=== PATIENT | female | born 1930 | race Caucasian/White ===

== ENCOUNTER → 2017-01-25 | Day surgery (SDC) | payer MEDICARE, BC ==
[~2017-01-25] MED LIST: BUPIVACAINE HCL 0.5% MPF 10 ML SOL ONE; TRIAMCINOLONE ACETONIDE 40 MG/ML SUS ONE
[2017-01-25 13:56] VITALS: O2SAT 96
[2017-01-25 14:39] VITALS: PULSE 67; RESP 14; TEMP 97.7
[2017-01-25 14:58] VITALS: BP 168/96
== END | disposition home or self-care (01) | DRG 556 ==
LOC: SURG 13:43
PROVIDERS: ATTEND Nurse Anesthetist, Certified Registered
DX: M79.1 Myalgia (principal)
CPT/HCPCS: J3300

== ENCOUNTER 2017-10-26 14:08 | Day surgery (SDC) | payer MEDICARE, BC ==
[2017-10-26] MEDS ORDERED: DIAZEPAM 5 MG TAB ONE (14:16)
[2017-10-26] MEDS ORDERED: TRIAMCINOLONE ACETONIDE 40 MG/ML SUS ONE (14:59)
[2017-10-26] MEDS ORDERED: BUPIVACAINE HCL 0.25% MPF 10 ML SOL INFIL ONE (15:00)
[2017-10-26 15:27] VITALS: RESP 20
[2017-10-26 15:32] VITALS: BP 166/98; PULSE 63; TEMP 97.7; O2SAT 97
== END 2017-10-26 15:45 | disposition home or self-care (01) | DRG 556 ==
LOC: SURG 14:08
PROVIDERS: ATTEND Nurse Anesthetist, Certified Registered
DX: M79.1 Myalgia (principal)
CPT/HCPCS: A6402; A9270-GY; J3300

== ENCOUNTER 2017-10-27 01:48 | Inpatient (IN) | payer MEDICARE, BC ==
[2017-10-27] MEDS: SODIUM CHLORIDE 0.9% FLUSH 10 ML SOL IV PRN ×8 (01:58→20:38)
[2017-10-27] MEDS ORDERED: HYDROMORPHONE HCL 2 MG/ML SOL IV ONE ×2 (02:00→03:01)
[2017-10-27] MEDS ORDERED: HYDROMORPHONE HCL 2 MG/ML SOL ONE ×2 (02:01→02:59)
[2017-10-27] MEDS ORDERED: SODIUM CHLORIDE 0.9% 1000ML 1,000 ML IV ONE (02:07)
[2017-10-27] MEDS ORDERED: KETOROLAC TROMETHAMINE 30 MG/ML SOL ONE (02:17)
[2017-10-27] MEDS ORDERED: KETOROLAC TROMETHAMINE 30 MG/ML SOL IV ONE (02:21)
[2017-10-27] MEDS ORDERED: MORPHINE SULFATE 10 MG/ML SOL IV PRN (02:28)
[2017-10-27 02:43] LABS: BASOPHILS % (AUTO) 1 % (0-3); EOSINOPHILS % (AUTO) 0 % (0-9); HEMATOCRIT 43 % (35-47); HEMOGLOBIN 14.5 gm/dl (12.0-15.5); LYMPHOCYTES % (AUTO) 14.6 % (10-50); MEAN CORPUSCULAR HEMOGLOBIN 28.2 pg (27.0-32.0); MEAN CORPUSCULAR HGB CONC 33.7 gm/dl (32.0-36.0); MEAN CORPUSCULAR VOLUME 84 fL (81-99); MONOCYTES % (AUTO) 2.6 % (0-12); NEUTROPHILS % (AUTO) 82.2 % (37-80)
[2017-10-27 02:54] LABS: ALBUMIN 3.5 gm/dl (3.4-5.0); BILIRUBIN,TOTAL 0.4 mg/dl (0.2-1.0); CALCIUM 9.5 mg/dl (8.5-10.1); CARBON DIOXIDE 26.3 mEq/L (21-32); CREATININE 0.61 mg/dl (0.60-1.00); POTASSIUM 3.8 mMol/L (3.5-5.1); TOTAL PROTEIN 7.7 gm/dl (6.4-8.2)
[2017-10-27] MEDS ORDERED: ONDANSETRON HCL 4 MG/2 ML SOL ONE (03:05)
[2017-10-27] MEDS: ONDANSETRON HCL 4 MG/2 ML SOL IV PRN ×3 (03:11→15:22)
[2017-10-27] MEDS ORDERED: MORPHINE SULFATE 10 MG/ML SOL ONE (07:55)
[2017-10-27] MEDS ORDERED: CHLORTHALIDONE 25 MG TAB PO SCH ×2 (09:15→21:00)
[2017-10-27] MEDS: CETIRIZINE HYDROCHLORIDE 10 MG TAB PO SCH ×2 (09:24→10:05)
[2017-10-27] MEDS: ACETAMINOPHEN 325 MG PO SCH ×2 (09:24→10:05)
[2017-10-27] MEDS: AMOXICILLIN 125/5 ML BOTTLE PO SCH ×3 (09:25→20:38)
[2017-10-27] MEDS: POTASSIUM CHLORIDE 10 MEQ TER PO SCH ×2 (09:25→10:05)
[2017-10-27] MEDS: DIPHENHYDRAMINE 50 MG/ML SOL IV PRN ×2 (09:54→17:31)
[2017-10-27] MEDS ORDERED: TRIAMCINOLONE ACETONIDE 40 MG/ML SUS ONE (11:31)
[2017-10-27] MEDS ORDERED: BUPIVACAINE HCL 0.25% MPF 30 ML SOL INFIL ONE (11:32)
[2017-10-27] MEDS ORDERED: APAP/HYDROCODONE 325/5 TAB PO PRN (14:12)
[2017-10-27] MEDS: KETOROLAC TROMETHAMINE 30 MG/ML SOL IV PRN (15:47)
[2017-10-27] MEDS ORDERED: HYDROMORPHONE 1 MG/ML SYRINGE IV ONE (17:40)
[2017-10-27] MEDS: TIZANIDINE 2 MG PO PRN (20:38)
[2017-10-27] MEDS: NIFEDIPINE 30 MG ER TABLET PO SCH (20:39)
[2017-10-28] MEDS ORDERED: DIPHENHYDRAMINE 50 MG/ML SOL ONE (02:11)
[2017-10-28] MEDS: DIPHENHYDRAMINE 50 MG/ML SOL IV PRN (02:16)
[2017-10-28] MEDS: KETOROLAC TROMETHAMINE 30 MG/ML SOL IV PRN (02:17)
[2017-10-28] MEDS: SODIUM CHLORIDE 0.9% FLUSH 10 ML SOL IV PRN ×2 (02:17→20:07)
[2017-10-28] MEDS: ACETAMINOPHEN 500 MG 500 MG TAB PO PRN ×3 (07:51→20:05)
[2017-10-28] MEDS: TIZANIDINE 2 MG PO PRN ×3 (07:52→20:05)
[2017-10-28] MEDS: METHYLPREDNISOLONE 4 MG TAB PO SCH ×4 (08:56→22:05)
[2017-10-28] MEDS: POTASSIUM CHLORIDE 10 MEQ TER PO SCH (08:57)
[2017-10-28] MEDS: ACETAMINOPHEN 325 MG PO SCH (08:58)
[2017-10-28] MEDS: CETIRIZINE HYDROCHLORIDE 10 MG TAB PO SCH (08:58)
[2017-10-28] MEDS ORDERED: METHYLPREDNISONE PO SCH (09:00)
[2017-10-28] MEDS: AMOXICILLIN 125/5 ML BOTTLE PO SCH ×2 (09:01→20:02)
[2017-10-28] MEDS: FLUTICASONE PROPIONATE SPR NAS SCH (09:03)
[2017-10-28] MEDS: ALUMINUM/MAGNESIUM 30 ML SUS PO PRN ×2 (13:47→17:58)
[2017-10-28] MEDS: NIFEDIPINE 30 MG ER TABLET PO SCH (20:04)
[2017-10-29] MEDS: ACETAMINOPHEN 500 MG 500 MG TAB PO PRN ×2 (02:04→08:51)
[2017-10-29] MEDS: TIZANIDINE 2 MG PO PRN ×2 (02:05→08:52)
[2017-10-29] MEDS: KETOROLAC TROMETHAMINE 30 MG/ML SOL IV PRN (06:24)
[2017-10-29] MEDS ORDERED: METHYLPREDNISOLONE 4 MG TAB PO SCH ×2 (07:00→22:00)
[2017-10-29 08:19] VITALS: BP 179/83; PULSE 70; RESP 17; TEMP 97.6; O2SAT 93
[2017-10-29] MEDS: POTASSIUM CHLORIDE 10 MEQ TER PO SCH (08:53)
[2017-10-29] MEDS: CETIRIZINE HYDROCHLORIDE 10 MG TAB PO SCH (08:54)
[2017-10-29] MEDS: ACETAMINOPHEN 325 MG PO SCH (08:55)
[2017-10-29] MEDS: AMOXICILLIN 125/5 ML BOTTLE PO SCH (09:16)
[2017-10-29] MEDS: FLUTICASONE PROPIONATE SPR NAS SCH (09:17)
[2017-10-30] MEDS ORDERED: METHYLPREDNISOLONE 4 MG TAB PO SCH (07:00)
[2017-10-31] MEDS ORDERED: METHYLPREDNISOLONE 4 MG TAB PO SCH (07:00)
[2017-11-01] MEDS ORDERED: METHYLPREDNISOLONE 4 MG TAB PO SCH (07:00)
[2017-11-02] MEDS ORDERED: METHYLPREDNISOLONE 4 MG TAB PO SCH (07:00)
== END 2017-10-29 11:00 | disposition home or self-care (01) | DRG 103 ==
LOC: SUPCPDRO 01:48 → ED 01:48 → ACUTE CARE 03:15
PROVIDERS: ADMIT Family Medicine; ATTEND Family Medicine
DX: G97.1 Other reaction to spinal and lumbar puncture (principal); R51 Headache; F41.9 Anxiety disorder, unspecified
CPT/HCPCS: 36415; 70450; 80053; 84484; 85025; 93005; 94762; 96365; 96374; 96375; 99222; 99285; J1170; J1200; J1885; J2270; J2405; A9270-GY; J3300

== ENCOUNTER 2017-11-22 09:11 | Day surgery (SDC) | payer MEDICARE, BC ==
[~2017-11-22 09:11] MED LIST changes: -BUPIVACAINE HCL 0.5% MPF 10 ML SOL ONE; +LIDOCAINE HCL 1% MPF 30 SOL ONE; +PROPOFOL 500 MG/50 ML EMU IV ONE; -TRIAMCINOLONE ACETONIDE 40 MG/ML SUS ONE
[2017-11-22 12:21] VITALS: RESP 18; TEMP 97.4
[2017-11-22 13:03] VITALS: PULSE 56; O2SAT 94
[2017-11-22 13:04] VITALS: BP 141/79
== END 2017-11-22 13:00 | disposition home or self-care (01) | DRG 392 ==
LOC: SURG 09:11
PROVIDERS: ATTEND Internal Medicine Gastroenterology
DX: R10.13 Epigastric pain (principal); R13.10 Dysphagia, unspecified; K29.50 Unspecified chronic gastritis without bleeding; K44.9 Diaphragmatic hernia without obstruction or gangrene; Q40.2 Other specified congenital malformations of stomach; L53.8 Other specified erythematous conditions
CPT/HCPCS: J2001; J2704